=== PATIENT | male | born 1965 | race Caucasian/White ===

== ENCOUNTER 2021-10-08 14:01 | Emergency (ER) | payer MEDICARE, MEDICAID, SELFPAY ==
[2021-10-08] VITALS (9 sets, daily range): BP systolic 174–190; BP diastolic 80–88; PULSE 63–68; RESP 20–24; TEMP 37.2; O2SAT 91–96
--- NOTE | 2021-10-08 14:12 | ED.SOB ---
HPI - SOB/Dyspnea General Chief Complaint: Shortness of Breath/Dyspnea Stated Complaint: trouble breathing-sent by Tarah KIRBY Time Seen by Provider: 10/08/21 14:11 Source: patient Mode of arrival: Ambulatory History of Present Illness HPI Narrative: 56-year-old male nonsmoker with history of chronic kidney disease receives hemodialysis Wednesdays and Fridays presents from the walk-in clinic for evaluation of shortness of breath over the past 1-2 months. He states that it had been present for quite some time though not necessarily any worse than normal. He denies any obvious provocation. She denies any change in medications or dialysis regimen. He had a full run yesterday which was unremarkable, he states he felt slightly better afterwards. For the past few weeks at least he has been using oxygen while getting dialyzed. He denies chest pain is not dizzy nor weak or lightheaded. Denies nausea or vomiting. He does still make a small amount of urine Related Data Home Medications Medication Instructions Recorded Confirmed amlodipine 2.5 mg tablet (Norvasc) PO QDAY #0 02/18/17 carvedilol 3.125 mg tablet (Coreg) #0 02/18/17 cinacalcet 30 mg tablet (Sensipar) 30 mg PO DAILY #0 02/18/17 furosemide 10 mg/mL oral solution PO QDAY #0 02/18/17 minoxidil 2.5 mg tablet PO QDAY #0 02/18/17 pantoprazole 20 mg tablet,delayed PO QDAY #0 02/18/17 release (Protonix) sevelamer carbonate 0.8 gram oral PO WITH MEALS #0 02/18/17 powder packet (Renvela) Allergies Allergy/AdvReac Type Severity Reaction Status Date / Time No Known Allergies Allergy Uncoded 10/07/17 12:45 Review of Systems Review of Systems Narrative: GENERAL: See HPI HEENT: Denies sinus pain, ear pain, sore throat, difficulty swallowing, dizziness. RESPIRATORY: See HPI CARDIOVASCULAR: Denies chest pain, palpitations, orthopnea, edema, GASTROINTESTINAL: Denies nausea, vomiting, abdominal pain, diarrhea, constipation, melena. : Denies dysuria, frequency, incontinence, hematuria, urinary retention. MUSCULOSKELETAL: denies weakness, joint pain, or bony pain SKIN: Denies rash, skin lesions, or other NEUROLOGIC: Denies weakness, headache, numbness, change in speech, confusion, seizures, incoordination. PSYCHIATRIC: No concerning psychosocial issues. 12 point review of systems is negative except for those stated above Patient History Social History Smoking Status: Former smoker Smoking Status: Former smoker tobacco type: smokeless tobacco Substance Use Type: marijuana Exam Narrative Exam Narrative: GENERAL: [56] year old patient appears stated age. Well-developed patient, in mild distress. HEAD: Atraumatic. Normocephalic. EYES: Pupils equal round and reactive. Extraocular motions intact. No scleral icterus. No injection or drainage. ENT: Nose without bleeding, purulent drainage. Throat without erythema, tonsillar hypertrophy or exudate. Airway patent. NECK: Trachea midline. Non tender CARDIOVASCULAR: Regular rate and rhythm without murmurs, gallops, or rubs. RESPIRATORY: Faint crackles in left base greater than right. No significant work of breathing, use of accessory muscles or need for supplemental oxygen GASTROINTESTINAL: Abdomen soft, non-tender, nondistended. EXTREMITIES: No edema or joint tenderness. BACK: Nontender without deformity or crepitance. No flank tenderness. NEURO: AOx3. SKIN: No rash or erythema of visible areas Initial Vital Signs Initial Vital Signs: Vital Signs Temperature 98.9 F 10/08/21 14:08 Pulse Rate 63 10/08/21 14:08 Respiratory Rate 20 10/08/21 14:08 Blood Pressure 190/88 H 10/08/21 14:08 Pulse Oximetry 94 10/08/21 14:08 Course Orders Ordered: ED Orders 10/08/21 14:17 Chest [XR chest 2V] Stat 10/08/21 15:30 BNP [NT-proBNP (BNP-Adult 18+)] Stat CBC Auto Diff [Complete Blood Count AUTO DIFF] Stat CMP [Comprehensive Metabolic Panel] Stat Troponin & CK Cardiac Panel Stat Vital Signs Vital signs: Vital Signs - 8 hr 10/08/21 14:08 10/08/21 14:17 10/08/21 14:19 Temperature 98.9 F Pulse Rate 63 65 66 Respiratory Rate 20 Blood Pressure 190/88 H 187/85 H Pulse Oximetry 94 91 93 10/08/21 14:33 10/08/21 15:00 10/08/21 15:30 Temperature Pulse Rate 68 63 66 Respiratory Rate 22 Blood Pressure Pulse Oximetry 91 93 92 10/08/21 16:00 10/08/21 16:30 10/08/21 16:54 Temperature Pulse Rate 68 68 67 Respiratory Rate 21 24 Blood Pressure 174/80 H Pulse Oximetry 91 96 94 MDM - SOB/Dyspnea Lab Data Result diagrams: 10/08/21 15:30 10/08/21 15:30 Labs: Lab Results 10/08/21 10/08/21 Range/Units 15:30 15:30 WBC 4.1 L (4.5-11.0) X10^3/uL RBC 2.94 L (4.5-5.9) X10^6/uL Hgb 9.0 L (13.5-17.5) g/dL Hct 26.8 L (41-53) % MCV 91.2 (80-100) fL MCH 30.6 (26-34) PG MCHC 33.5 (30-36) % RDW 14.1 (11.6-14.8) % Plt Count 197 (150-400) X10^3/uL Neut % (Auto) 42.0 L (50-75) % Lymph % (Auto) 36.5 (25-40) % Kidder % (Auto) 11.3 (3-14) % Eos % (Auto) 9.8 H (2-4) % Baso % (Auto) 0.4 (0-2) % Neut # (Auto) 1700 (2303-7943) /uL Lymph # (Auto) 1500 (1796-0302) /uL Kidder # (Auto) 500 (0-900) /uL Eos # (Auto) 400 (0-450) /uL Baso # (Auto) 0 (0-100) /uL Sodium 142 (137-145) mmol/L Potassium 4.1 (3.4-5.1) mmol/L Chloride 94 L (98-107) mmol/L Carbon Dioxide 39 H (22-32) mmol/L BUN 26 H (9-20) mg/dL Creatinine 6.97 H (0.66-1.25) mg/dL Estimated GFR 8.5 L (>60) mL/min BUN/Creatinine Ratio 3.7 L (6-22) Glucose 93 (70-100) mg/dL Calcium 11.2 H (8.4-10.2) mg/dL Total Bilirubin 0.5 (0.2-1.3) mg/dL AST 18 (17-59) IU/L ALT 8 (<50) IU/L Alkaline Phosphatase 95 (38-126) U/L Total Creatine Kinase 36 L (55-170) U/L CK-MB (CK-2) TNP CK-MB (CK-2) Rel Index TNP Troponin I 0.038 H (0.01-0.034) ng/mL NT-Pro-B Natriuret Pep 60366 H (<125) pg/mL Total Protein 7.2 (6.3-8.2) g/dL Albumin 4.1 (3.5-5.0) g/dL Globulin 3.1 (1.7-4.1) g/dL Albumin/Globulin Ratio 1.3 (1.0-2.8) Imaging Data Chest x-ray: My Impression: Known pneumonia, pulmonary edema or pneumothorax. Mild left-sided pleural effusion Radiologist's Impression: [address] [address] XRay Report Signed Patient: Jessa Mckeon MR#: [id number] : 1965 Acct:[id number] Age/Sex: 56 / M Date of Service: 10/08/21 Loc: Accession Number: [id number] ?? Procedure: XR chest 2V Ordering Provider: Quintin Thompson D.O. PROCEDURE:? XR CHEST 2V ? INDICATIONS:? soa ? TECHNIQUE:? 2 views of the chest were acquired.? ? COMPARISON:? None. ? FINDINGS:? ? Surgical changes and devices:? None.? ? Lungs and pleura:? There is a mild left effusion.? Minimal linear opacities are noted within the right base, likely atelectasis. ? Mediastinum:? Mediastinal contours are normal.? Heart size is normal.? ? Bones and chest wall:? No suspicious bony abnormalities.? Soft tissues appear unremarkable.? ? IMPRESSION:? Mild left effusion.? Underlying areas of pneumonia and/or atelectasis cannot be excluded. ? ? Dictated by: Iveth Calvillo M.D. on 10/08/2021 at 14:47 ? ? Approved by: Iveth Calvillo M.D. on 10/08/2021 at 14:48 ? MDM Narrative Medical decision making narrative: Patient with chronic dyspnea presents for evaluation of possible pneumothorax versus other. His exam is very reassuring in largely at baseline. Vital signs are normal for him, pulse ox remains in the low 90s with the course of the visit without need for supplemental oxygen. Chest x-ray is reassuring, labs are at his baseline. He is in no obvious distress and has dialysis scheduled for tomorrow. He is given return precautions and has had questions answered to his apparent satisfaction Discharge Plan Departure Patient Disposition: Home Clinical Impression: Chronic shortness of breath Instructions: DI for Shortness of Breath Activity Restrictions/Additional Instructions: *You have been diagnosed with [chronic shortness of breath. As we discussed your chest x-ray does not show a pneumonia or fluid overload, however there is a small collection of fluid in the left lower portion of your lung and. There is no evidence of pneumonia. Your labs are largely at her baseline. Your vital signs are reassuring and there is no indication for the need of emergent intervention. *What to do: *Please continue to take your regular medications as directed. [ ] New medication prescriptions sent to your pharmacy: [ ] [ ] New medication written as a paper prescription [x ] No new medications given *Please follow up with your primary care provider in 2-3 days, call for an appointment. Let them know you were seen in the Emergency Department and that we ask that you be seen in follow up. We will electronically transmit a record of today's note if your PCP is in our system *If you do not have a primary care provider please contact the [facility] Resource line at [phone]. They will ask some questions about your medical history and help get you set up with a doctor in the community. *Return to Emergency Department if you should have any new, worsening or concerning symptoms, such as [fever greater than 101 F, shaking chills, worsening pain, persistent vomiting or other bothersome symptoms] Prescriptions: No Action carvedilol [Coreg] 3.125 mg tablet Qty: 0 0RF furosemide 10 mg/mL solution PO QDAY Qty: 0 0RF amlodipine [Norvasc] 2.5 mg tablet PO QDAY Qty: 0 0RF minoxidil 2.5 mg tablet PO QDAY Qty: 0 0RF pantoprazole [Protonix] 20 mg tablet,delayed release (/EC) PO QDAY Qty: 0 0RF cinacalcet [Sensipar] 30 MG tablet 30 mg PO DAILY Qty: 0 0RF sevelamer carbonate [Renvela] 0.8 gram powder in packet PO WITH MEALS Qty: 0 0RF
--- NOTE | 2021-10-08 14:17 | DI.RAD.S_ITS ---
PROCEDURE: XR CHEST 2V INDICATIONS: soa TECHNIQUE: 2 views of the chest were acquired. COMPARISON: None. FINDINGS: Surgical changes and devices: None. Lungs and pleura: There is a mild left effusion. Minimal linear opacities are noted within the right base, likely atelectasis. Mediastinum: Mediastinal contours are normal. Heart size is normal. Bones and chest wall: No suspicious bony abnormalities. Soft tissues appear unremarkable. IMPRESSION: Mild left effusion. Underlying areas of pneumonia and/or atelectasis cannot be excluded. Dictated by: Iveth Calvillo M.D. on 10/08/2021 at 14:47 Approved by: Iveth Calvillo M.D. on 10/08/2021 at 14:48
[2021-10-08 15:42] LABS: Add Manual Diff / Slide Review NO; Basophils Absolute Auto 0 /uL (0-100); Basophils Percent Auto 0.4 % (0-2); Eosinophils Absolute Auto 400 /uL (0-450); Eosinophils Percent Auto 9.8 % (2-4); Hematocrit 26.8 % (41-53); Lymphocytes Absolute Auto 1500 /uL (1100-4500); Lymphocytes Percent Auto 36.5 % (25-40); Mean Corpuscular HGB Conc 33.5 % (30-36); Mean Corpuscular Hemoglobin 30.6 PG (26-34); Mean Corpuscular Volume 91.2 fL (80-100); Monocytes Absolute Auto 500 /uL (0-900); Monocytes Percent Auto 11.3 % (3-14); Neutrophils Absolute Auto 1700 /uL (1500-7000); Platelet Count 197 X10^3/uL (150-400); Red Blood Cell Count 2.94 X10^6/uL (4.5-5.9); Red Cell Distribution Width 14.1 % (11.6-14.8); White Blood Cell Count 4.1 X10^3/uL (4.5-11.0)
[2021-10-08 16:03] LABS: Alanine Aminotransferase 8 IU/L (<50); Albumin 4.1 g/dL (3.5-5.0); Albumin Globulin Ratio 1.3 (1.0-2.8); Alkaline Phosphatase 95 U/L (38-126); Aspartate Aminotransferase 18 IU/L (17-59); BUN Creatinine Ratio 3.7 (6-22); Bilirubin Total 0.5 mg/dL (0.2-1.3); Blood Urea Nitrogen 26 mg/dL (9-20); Calcium 11.2 mg/dL (8.4-10.2); Carbon Dioxide 39 mmol/L (22-32); Chloride 94 mmol/L (98-107); Creatine Kinase 36 U/L (55-170); Estimated Glomerular Filt Rate 8.5 mL/min (>60); Globulin 3.1 g/dL (1.7-4.1); Glucose 93 mg/dL (70-100); HEMOLYSIS 24 (0-50); Potassium 4.1 mmol/L (3.4-5.1); Sodium 142 mmol/L (137-145); Total Protein 7.2 g/dL (6.3-8.2)
[2021-10-08 16:14] LABS: NT-proBNP (BNP-Adult 18+) 19400 pg/mL (<125); Troponin I 0.038 ng/mL (0.01-0.034)
== END 2021-10-08 16:59 | disposition home or self-care (01) ==
PROVIDERS: Emergency Provider Emergency Medicine
DX: R06.02 Shortness of breath (principal)
CPT/HCPCS: 71046; 80053; 82550; 83880; 84484; 85025; 99283; 99284